=== PATIENT | male | born 1990 | race Caucasian/White ===

== ENCOUNTER 2021-07-06 17:05 | Inpatient (IN) | payer MEDICAID, OTHER ==
[~2021-07-06] VITALS: Ht 172.7 cm; Wt 70.3 kg
[2021-07-06] MEDS ORDERED: ONDANSETRON 4MG ODT PO PRN (17:15)
[2021-07-06 17:30] VITALS: BP 110/66
[2021-07-06] MEDS: OXYCODONE HCL 5MG TABLET PO PRN (17:30)
[2021-07-06] MEDS ORDERED: BISACODYL 10MG SUPP PR PRN (17:45)
[2021-07-06] MEDS ORDERED: BISACODYL 5MG TABLET PO PRN (17:45)
[2021-07-06] MEDS ORDERED: NA PHOS,M-B/NA PHOS,DI-BA ENEMA 118ML PR PRN (17:45)
[2021-07-06] MEDS ORDERED: ENOXAPARIN 30MG/0.3ML SYR SUBCUT SCH (18:00)
[2021-07-06] MEDS: ACETAMINOPHEN 325MG TABLET PO SCH (18:30)
[2021-07-06] MEDS ORDERED: DOCUSATE SODIUM 100MG CAPSULE PO PRN (18:45)
[2021-07-06] MEDS: HYDROCODONE/ACETAMINOPHEN 10/325MG TABLET PO PRN (19:25)
[2021-07-06 20:00] VITALS: BP 104/62
[2021-07-06] MEDS: KETOROLAC 60MG/2ML VIAL IM PRN (21:48)
[2021-07-07] LABS: HEMATOCRIT. 33.5 % (42.0-52.0); HEMOGLOBIN. 11.6 g/dL (14.0-18.0); MEAN CORPUSCULAR VOLUME 86.6 fL (80.0-94.0); MEAN PLATELET VOLUME 7.5 fl (7.4-10.4); PLATELET 421 x1000/uL (130-400); RED BLOOD CELL COUNT 3.87 mill/uL (4.7-6.1); RED CELL DISTRIBUTION WIDTH 14.3 % (11.6-14.6)
[2021-07-07 00:36] LABS: PLATELET ESTIMATE INCREASED
[2021-07-07] MEDS: ACETAMINOPHEN 325MG TABLET PO PRN ×4 (00:52→22:21)
[2021-07-07] MEDS: ACETAMINOPHEN 325MG TABLET PO SCH (02:30)
[2021-07-07] MEDS: OXYCODONE HCL 5MG TABLET PO PRN (05:43)
[2021-07-07 05:47] VITALS: BP 138/59
[2021-07-07] MEDS ORDERED: ENOXAPARIN 30MG/0.3ML SYR SUBCUT SCH (06:00)
[2021-07-07 08:00] VITALS: BP 113/59
[2021-07-07] MEDS: POLYETHYLENE GLYCOL 3350 (17GM) 1 DOSE PACK PO SCH ×2 (09:00→09:30)
[2021-07-07] MEDS ORDERED: DOCUSATE SODIUM SUGAR FREE 100MG/10ML UDC NG SCH (09:00)
[2021-07-07 09:25] LABS: BASOPHILS % 0.3 % (0.0-2.0); HEMATOCRIT. 35.1 % (42.0-52.0); LYMPHOCYTES % 7.3 % (20.0-50.0); MEAN CORPUSCULAR HEMOGLOBIN 30.3 pg (28.0-32.0); MEAN CORPUSCULAR VOLUME 88.7 fL (80.0-94.0); MEAN PLATELET VOLUME 7.5 fl (7.4-10.4); MONOCYTES % 6.2 % (2.0-8.0); NEUTROPHILS % 86.2 % (40.0-76.0); PLATELET 363 x1000/uL (130-400); RED BLOOD CELL COUNT 3.95 mill/uL (4.7-6.1)
[2021-07-07] MEDS: SENNOSIDES/DOCUSATE SOD 8.6/50MG TABLET PO SCH ×2 (09:29→17:21)
[2021-07-07 09:30] LABS: CHLORIDE 93 mEq/L (98-107)
[2021-07-07] MEDS ORDERED: DEXT 5%/0.45% NACL 1000ML 1,000 ML IV SCH (11:00)
[2021-07-07] MEDS: ENOXAPARIN 40MG/0.4ML SYR SUBCUT SCH (11:16)
[2021-07-07] MEDS: HYDROCODONE/ACETAMINOPHEN 10/325MG TABLET PO PRN ×2 (16:13→20:39)
[2021-07-07] MEDS ORDERED: NALOXONE HCL 0.4MG/ML VIAL IV PRN (16:30)
[2021-07-07] MEDS: CYCLOBENZAPRINE 10MG TABLET PO PRN (19:44)
[2021-07-07 20:00] VITALS: BP 115/78
[2021-07-08 05:00] VITALS: BP 104/77
[2021-07-08] MEDS: HYDROCODONE/ACETAMINOPHEN 10/325MG TABLET PO PRN ×3 (05:21→23:45)
[2021-07-08] MEDS: ACETAMINOPHEN 325MG TABLET PO PRN ×2 (05:44→16:10)
[2021-07-08 05:47] LABS: CLARITY URINE CLEAR (CLEAR); COLOR URINE YELLOW (YELLOW); KETONES URINE NEGATIVE (NEGATIVE); LEUKOCYTE ESTERASE URINE NEGATIVE (NEGATIVE); NITRITE URINE NEGATIVE (NEGATIVE); OCCULT BLOOD URINE NEGATIVE (NEGATIVE); PH URINE 7.5 (4.5-8.0); PROTEIN URINE NEGATIVE (NEGATIVE); SPECIFIC GRAVITY URINE 1.012 (1.005-1.030); UROBILINOGEN URINE 0.2 E.U./dL (0.2-1.0)
[2021-07-08 08:02] VITALS: BP 125/66
[2021-07-08] MEDS: SENNOSIDES/DOCUSATE SOD 8.6/50MG TABLET PO SCH ×2 (08:52→16:10)
[2021-07-08] MEDS: ENOXAPARIN 40MG/0.4ML SYR SUBCUT SCH (08:53)
[2021-07-08] MEDS: POLYETHYLENE GLYCOL 3350 (17GM) 1 DOSE PACK PO SCH (08:53)
[2021-07-08] MEDS: SULFAMETHOXAZOLE/TRIMETHOPRIM 800/160MG TABLET PO SCH ×2 (11:19→20:53)
[2021-07-08] MEDS ORDERED: LIDOCAINE HCL 1% 20ML VIAL (Pyxis) INJ ONE (11:45)
[2021-07-08] MEDS ORDERED: VANCOMYCIN 1250MG in DEXTROSE 5% WATER 250ML IV SCH (13:00)
[2021-07-08 15:50] VITALS: BP 113/68
[2021-07-08] MEDS ORDERED: DIPHENHYDRAMINE 50MG/ML VIAL IV NR (16:45)
[2021-07-08 20:00] VITALS: BP 130/55
[2021-07-09] MEDS ORDERED: VANCOMYCIN 1250MG in DEXTROSE 5% WATER 250ML IV SCH (02:00)
[2021-07-09] MEDS: KETOROLAC 60MG/2ML VIAL IM PRN (06:10)
[2021-07-09 08:00] VITALS: BP 105/70
[2021-07-09] MEDS: POLYETHYLENE GLYCOL 3350 (17GM) 1 DOSE PACK PO SCH (09:00)
[2021-07-09] MEDS: SENNOSIDES/DOCUSATE SOD 8.6/50MG TABLET PO SCH ×2 (09:30→17:21)
[2021-07-09] MEDS: ENOXAPARIN 40MG/0.4ML SYR SUBCUT SCH (09:30)
[2021-07-09] MEDS: SULFAMETHOXAZOLE/TRIMETHOPRIM 800/160MG TABLET PO SCH (09:30)
[2021-07-09] MEDS: HYDROCODONE/ACETAMINOPHEN 10/325MG TABLET PO PRN ×2 (10:40→18:02)
[2021-07-09] MEDS: VANCOMYCIN 1 G PREMIX 200 ML IV SCH ×2 (10:47→18:12)
[2021-07-09 20:30] VITALS: BP 108/54
[2021-07-10] MEDS: ACETAMINOPHEN 325MG TABLET PO PRN ×2 (00:39→09:28)
[2021-07-10 01:00] LABS: BASOPHILS % 0.3 % (0.0-2.0); EOSINOPHILS % 0.7 % (0.0-5.0); HEMATOCRIT. 24.8 % (42.0-52.0); HEMOGLOBIN. 8.8 g/dL (14.0-18.0); LYMPHOCYTES % 16.6 % (20.0-50.0); MEAN CORPUSCULAR HEMOGLOBIN 30.6 pg (28.0-32.0); MEAN CORPUSCULAR VOLUME 86.5 fL (80.0-94.0); MEAN PLATELET VOLUME 7.8 fl (7.4-10.4); MONOCYTES % 14.9 % (2.0-8.0); NEUTROPHILS % 67.5 % (40.0-76.0); PLATELET 288 x1000/uL (130-400); RED BLOOD CELL COUNT 2.87 mill/uL (4.7-6.1)
[2021-07-10 01:10] LABS: CHLORIDE 96 mEq/L (98-107)
[2021-07-10 01:18] LABS: VANCOMYCIN TROUGH 11.6 ug/mL (5.0-10.0)
[2021-07-10] MEDS: VANCOMYCIN 1 G PREMIX 200 ML IV SCH ×3 (02:59→11:07)
[2021-07-10] MEDS: OXYCODONE HCL 5MG TABLET PO PRN (06:19)
[2021-07-10 08:26] VITALS: BP 101/52
[2021-07-10] MEDS: POLYETHYLENE GLYCOL 3350 (17GM) 1 DOSE PACK PO SCH (09:00)
[2021-07-10] MEDS: SENNOSIDES/DOCUSATE SOD 8.6/50MG TABLET PO SCH ×2 (09:10→18:50)
[2021-07-10] MEDS: ENOXAPARIN 40MG/0.4ML SYR SUBCUT SCH (09:10)
[2021-07-10] MEDS: NAFCILLIN SODIUM 1,000 MG in SODIUM CHLORIDE 0.9% 50 ML IV SCH ×2 (13:43→18:47)
[2021-07-10] MEDS ORDERED: VANCOMYCIN 1250MG in DEXTROSE 5% WATER 250ML IV SCH (14:00)
[2021-07-10] MEDS: MIDODRINE HCL 5MG TABLET PO SCH (18:50)
[2021-07-10 20:00] VITALS: BP 108/65
[2021-07-11] MEDS: ACETAMINOPHEN 325MG TABLET PO PRN (01:11)
[2021-07-11] MEDS: NAFCILLIN SODIUM 1,000 MG in SODIUM CHLORIDE 0.9% 50 ML IV SCH ×4 (01:11→18:14)
[2021-07-11 08:25] VITALS: BP 107/64
[2021-07-11] MEDS: POLYETHYLENE GLYCOL 3350 (17GM) 1 DOSE PACK PO SCH ×2 (09:00→10:34)
[2021-07-11] MEDS: SENNOSIDES/DOCUSATE SOD 8.6/50MG TABLET PO SCH ×2 (10:34→17:00)
[2021-07-11] MEDS: MIDODRINE HCL 5MG TABLET PO SCH ×3 (10:34→18:10)
[2021-07-11] MEDS: HYDROCODONE/ACETAMINOPHEN 10/325MG TABLET PO PRN (10:38)
[2021-07-11] MEDS: ENOXAPARIN 40MG/0.4ML SYR SUBCUT SCH (18:14)
[2021-07-12] MEDS: NAFCILLIN SODIUM 1,000 MG in SODIUM CHLORIDE 0.9% 50 ML IV SCH ×5 (00:59→23:34)
[2021-07-12] MEDS: ACETAMINOPHEN 325MG TABLET PO PRN ×2 (03:03→10:10)
[2021-07-12 08:00] VITALS: BP 105/64
[2021-07-12] MEDS: POLYETHYLENE GLYCOL 3350 (17GM) 1 DOSE PACK PO SCH (09:00)
[2021-07-12] MEDS: SENNOSIDES/DOCUSATE SOD 8.6/50MG TABLET PO SCH ×2 (09:00→18:16)
[2021-07-12] MEDS: ENOXAPARIN 40MG/0.4ML SYR SUBCUT SCH (10:09)
[2021-07-12] MEDS: MIDODRINE HCL 5MG TABLET PO SCH ×3 (10:11→18:10)
[2021-07-12] MEDS: OXYCODONE HCL 5MG TABLET PO PRN ×2 (13:16→23:33)
[2021-07-12 20:00] VITALS: BP 109/88
[2021-07-13] MEDS: NAFCILLIN SODIUM 1,000 MG in SODIUM CHLORIDE 0.9% 50 ML IV SCH ×4 (06:09→23:23)
[2021-07-13 08:00] VITALS: BP 101/65
[2021-07-13] MEDS: POLYETHYLENE GLYCOL 3350 (17GM) 1 DOSE PACK PO SCH ×2 (09:00→09:35)
[2021-07-13] MEDS: MIDODRINE HCL 5MG TABLET PO SCH ×3 (09:35→17:06)
[2021-07-13] MEDS: ENOXAPARIN 40MG/0.4ML SYR SUBCUT SCH (09:36)
[2021-07-13] MEDS: SENNOSIDES/DOCUSATE SOD 8.6/50MG TABLET PO SCH ×2 (09:37→17:07)
[2021-07-13] MEDS: OXYCODONE HCL 5MG TABLET PO PRN ×2 (09:37→20:30)
[2021-07-13] MEDS: ACETAMINOPHEN 325MG TABLET PO PRN (12:42)
[2021-07-13 20:00] VITALS: BP 101/51
[2021-07-13] MEDS: HYDROXYZINE 25MG TABLET PO SCH (20:29)
[2021-07-14] MEDS: NAFCILLIN SODIUM 1,000 MG in SODIUM CHLORIDE 0.9% 50 ML IV SCH ×4 (05:38→23:46)
[2021-07-14 08:00] VITALS: BP 104/68
[2021-07-14] MEDS: MIDODRINE HCL 5MG TABLET PO SCH ×3 (08:27→17:46)
[2021-07-14] MEDS: POLYETHYLENE GLYCOL 3350 (17GM) 1 DOSE PACK PO SCH (08:28)
[2021-07-14] MEDS: OXYCODONE HCL 5MG TABLET PO PRN ×2 (08:28→15:02)
[2021-07-14] MEDS: SENNOSIDES/DOCUSATE SOD 8.6/50MG TABLET PO SCH ×2 (08:28→17:47)
[2021-07-14] MEDS: ENOXAPARIN 40MG/0.4ML SYR SUBCUT SCH (09:00)
[2021-07-14 13:00] VITALS: BP 97/55
[2021-07-14 20:00] VITALS: BP 96/58
[2021-07-14] MEDS: HYDROXYZINE 25MG TABLET PO SCH (20:18)
[2021-07-15] MEDS: NAFCILLIN SODIUM 1,000 MG in SODIUM CHLORIDE 0.9% 50 ML IV SCH ×2 (05:28→12:52)
[2021-07-15] MEDS: OXYCODONE HCL 5MG TABLET PO PRN ×2 (05:41→12:52)
[2021-07-15 08:00] VITALS: BP 97/54
[2021-07-15] MEDS: POLYETHYLENE GLYCOL 3350 (17GM) 1 DOSE PACK PO SCH (09:00)
[2021-07-15] MEDS: MIDODRINE HCL 5MG TABLET PO SCH ×3 (09:08→16:49)
[2021-07-15] MEDS: SENNOSIDES/DOCUSATE SOD 8.6/50MG TABLET PO SCH ×2 (09:09→16:49)
[2021-07-15] MEDS: ENOXAPARIN 40MG/0.4ML SYR SUBCUT SCH (09:10)
[2021-07-15 16:30] VITALS: BP 106/87
[2021-07-15 21:00] VITALS: BP 114/70
[2021-07-15] MEDS: HYDROXYZINE 25MG TABLET PO SCH (21:33)
[2021-07-16] MEDS: ACETAMINOPHEN 325MG TABLET PO PRN ×3 (00:29→20:48)
[2021-07-16 06:09] VITALS: BP 97/60
[2021-07-16] MEDS: MIDODRINE HCL 5MG TABLET PO SCH ×3 (08:07→16:14)
[2021-07-16] MEDS: OXYCODONE HCL 5MG TABLET PO PRN ×2 (08:07→16:14)
[2021-07-16] MEDS: ENOXAPARIN 40MG/0.4ML SYR SUBCUT SCH (08:08)
[2021-07-16] MEDS: POLYETHYLENE GLYCOL 3350 (17GM) 1 DOSE PACK PO SCH (08:12)
[2021-07-16] MEDS: SENNOSIDES/DOCUSATE SOD 8.6/50MG TABLET PO SCH ×2 (08:12→16:14)
[2021-07-16] MEDS: SULFAMETHOXAZOLE/TRIMETHOPRIM 400/80MG TAB PO SCH ×2 (12:44→20:48)
[2021-07-16 16:15] VITALS: BP 110/64
[2021-07-16 20:00] VITALS: BP 110/64
[2021-07-16] MEDS: HYDROXYZINE 25MG TABLET PO SCH (20:47)
[2021-07-17 08:00] VITALS: BP 110/70
[2021-07-17 08:00] LABS: HEMATOCRIT 31.1 % (42.0-52.0); HEMOGLOBIN 10.6 g/dL (14.0-18.0); MEAN CORPUSCULAR HEMOGLOBIN 29.5 pg (28.0-32.0); MEAN CORPUSCULAR VOLUME 86.6 fL (80.0-94.0); PLATELET 936 x1000/uL (130-400); RED BLOOD CELL COUNT 3.59 mill/uL (4.7-6.1); RED CELL DISTRIBUTION WIDTH 15.2 % (11.6-14.6)
[2021-07-17 08:02] LABS: CHLORIDE 102 mEq/L (98-107)
[2021-07-17] MEDS: SULFAMETHOXAZOLE/TRIMETHOPRIM 400/80MG TAB PO SCH ×2 (08:35→21:06)
[2021-07-17] MEDS: MIDODRINE HCL 5MG TABLET PO SCH ×3 (08:35→16:33)
[2021-07-17] MEDS: ENOXAPARIN 40MG/0.4ML SYR SUBCUT SCH (08:36)
[2021-07-17] MEDS: OXYCODONE HCL 5MG TABLET PO PRN (08:36)
[2021-07-17] MEDS: POLYETHYLENE GLYCOL 3350 (17GM) 1 DOSE PACK PO SCH (08:38)
[2021-07-17] MEDS: SENNOSIDES/DOCUSATE SOD 8.6/50MG TABLET PO SCH ×2 (08:39→16:32)
[2021-07-17] MEDS: ACETAMINOPHEN 325MG TABLET PO PRN (13:19)
[2021-07-17 16:31] VITALS: BP 102/63
[2021-07-17 20:00] VITALS: BP 98/53
[2021-07-17] MEDS: HYDROXYZINE 25MG TABLET PO SCH (21:06)
[2021-07-18] VITALS: BP 109/62
[2021-07-18 08:00] VITALS: BP 100/62
[2021-07-18] MEDS: POLYETHYLENE GLYCOL 3350 (17GM) 1 DOSE PACK PO SCH (11:14)
[2021-07-18] MEDS: SENNOSIDES/DOCUSATE SOD 8.6/50MG TABLET PO SCH ×2 (11:19→17:47)
[2021-07-18] MEDS: MIDODRINE HCL 5MG TABLET PO SCH ×3 (11:19→17:47)
[2021-07-18] MEDS: SULFAMETHOXAZOLE/TRIMETHOPRIM 400/80MG TAB PO SCH ×2 (11:20→22:32)
[2021-07-18] MEDS: ENOXAPARIN 40MG/0.4ML SYR SUBCUT SCH (11:20)
[2021-07-18] MEDS: CYCLOBENZAPRINE 10MG TABLET PO PRN (11:21)
[2021-07-18] MEDS: TRAMADOL 50MG TABLET PO PRN (16:08)
[2021-07-18 20:00] VITALS: BP 112/61
[2021-07-18] MEDS: HYDROXYZINE 25MG TABLET PO SCH (23:09)
[2021-07-19] MEDS: TRAMADOL 50MG TABLET PO PRN ×2 (06:49→12:43)
[2021-07-19 08:00] VITALS: BP 93/40
[2021-07-19] MEDS: POLYETHYLENE GLYCOL 3350 (17GM) 1 DOSE PACK PO SCH (08:04)
[2021-07-19] MEDS: MIDODRINE HCL 5MG TABLET PO SCH ×3 (08:06→16:13)
[2021-07-19] MEDS: SENNOSIDES/DOCUSATE SOD 8.6/50MG TABLET PO SCH ×2 (08:07→16:13)
[2021-07-19] MEDS: ENOXAPARIN 40MG/0.4ML SYR SUBCUT SCH (08:07)
[2021-07-19] MEDS: SULFAMETHOXAZOLE/TRIMETHOPRIM 400/80MG TAB PO SCH ×2 (08:07→21:00)
[2021-07-19] MEDS: CYCLOBENZAPRINE 10MG TABLET PO PRN ×2 (08:08→16:13)
[2021-07-19 10:00] VITALS: BP 105/69
[2021-07-19 20:00] VITALS: BP 102/60
[2021-07-20] MEDS: TRAMADOL 50MG TABLET PO PRN ×2 (05:43→12:41)
[2021-07-20 08:00] VITALS: BP 95/56
[2021-07-20] MEDS: POLYETHYLENE GLYCOL 3350 (17GM) 1 DOSE PACK PO SCH ×2 (08:29→08:32)
[2021-07-20] MEDS: SULFAMETHOXAZOLE/TRIMETHOPRIM 400/80MG TAB PO SCH ×2 (08:30→20:03)
[2021-07-20] MEDS: SENNOSIDES/DOCUSATE SOD 8.6/50MG TABLET PO SCH ×3 (08:30→17:00)
[2021-07-20] MEDS: MIDODRINE HCL 5MG TABLET PO SCH ×3 (08:30→17:42)
[2021-07-20] MEDS: ENOXAPARIN 40MG/0.4ML SYR SUBCUT SCH (08:31)
[2021-07-20] MEDS: ACETAMINOPHEN 325MG TABLET PO PRN (12:46)
[2021-07-20 20:00] VITALS: BP 99/60
[2021-07-21 08:00] VITALS: BP 102/69
[2021-07-21] MEDS: MIDODRINE HCL 5MG TABLET PO SCH ×3 (08:40→17:46)
[2021-07-21] MEDS: SENNOSIDES/DOCUSATE SOD 8.6/50MG TABLET PO SCH ×2 (08:40→17:46)
[2021-07-21] MEDS: SULFAMETHOXAZOLE/TRIMETHOPRIM 400/80MG TAB PO SCH ×2 (08:41→20:02)
[2021-07-21] MEDS: ACETAMINOPHEN 325MG TABLET PO PRN (08:41)
[2021-07-21] MEDS: ENOXAPARIN 40MG/0.4ML SYR SUBCUT SCH (08:42)
[2021-07-21] MEDS: POLYETHYLENE GLYCOL 3350 (17GM) 1 DOSE PACK PO SCH (08:43)
[2021-07-21] MEDS: TRAMADOL 50MG TABLET PO PRN (18:08)
[2021-07-21 20:00] VITALS: BP 102/68
[2021-07-22] MEDS: TRAMADOL 50MG TABLET PO PRN (06:07)
[2021-07-22 08:00] VITALS: BP 96/47
[2021-07-22] MEDS: MIDODRINE HCL 5MG TABLET PO SCH ×3 (08:47→16:43)
[2021-07-22] MEDS: SENNOSIDES/DOCUSATE SOD 8.6/50MG TABLET PO SCH ×2 (08:48→16:53)
[2021-07-22] MEDS: ENOXAPARIN 40MG/0.4ML SYR SUBCUT SCH (08:48)
[2021-07-22] MEDS: POLYETHYLENE GLYCOL 3350 (17GM) 1 DOSE PACK PO SCH ×2 (08:49→13:49)
[2021-07-22 20:00] VITALS: BP 104/50
[2021-07-23] MEDS: ACETAMINOPHEN 325MG TABLET PO PRN ×2 (07:48→22:02)
[2021-07-23] MEDS: TRAMADOL 50MG TABLET PO PRN (07:50)
[2021-07-23 07:55] VITALS: BP 100/62
[2021-07-23] MEDS: MIDODRINE HCL 5MG TABLET PO SCH ×3 (08:07→16:37)
[2021-07-23] MEDS: POLYETHYLENE GLYCOL 3350 (17GM) 1 DOSE PACK PO SCH (08:08)
[2021-07-23] MEDS: ENOXAPARIN 40MG/0.4ML SYR SUBCUT SCH (08:08)
[2021-07-23] MEDS: SENNOSIDES/DOCUSATE SOD 8.6/50MG TABLET PO SCH ×2 (08:09→16:37)
[2021-07-23 08:45] VITALS: BP 100/62
[2021-07-23 20:00] VITALS: BP 109/62
[2021-07-24 08:00] VITALS: BP 107/61
[2021-07-24] MEDS: POLYETHYLENE GLYCOL 3350 (17GM) 1 DOSE PACK PO SCH (09:00)
[2021-07-24] MEDS: SENNOSIDES/DOCUSATE SOD 8.6/50MG TABLET PO SCH (09:00)
[2021-07-24] MEDS: MIDODRINE HCL 5MG TABLET PO SCH ×2 (09:03→13:28)
[2021-07-24] MEDS: ENOXAPARIN 40MG/0.4ML SYR SUBCUT SCH (09:03)
[2021-07-24] MEDS: ACETAMINOPHEN 325MG TABLET PO PRN (09:03)
[2021-07-24 12:26] VITALS: BP 107/61
[2021-07-24] MEDS ORDERED: MIDO10TA MT (14:23)
== END 2021-07-24 14:15 | disposition home health service (06) | DRG 341 ==
PROVIDERS: ADMIT Psychiatry & Neurology Neurology; ATTEND Hospitalist
PROC: 02HV33Z Insertion of Infusion Device into Superior Vena Cava, Percutaneous Approach (ICD-10-PCS; principal; 2021-07-08)
PROC: B548ZZA Ultrasonography of Superior Vena Cava, Guidance (ICD-10-PCS; 2021-07-08)
DX: S32.591A Other specified fracture of right pubis, initial encounter for closed fracture (principal); A41.01 Sepsis due to Methicillin susceptible Staphylococcus aureus; S32.059A Unspecified fracture of fifth lumbar vertebra, initial encounter for closed fracture; E87.1 Hypo-osmolality and hyponatremia; I95.9 Hypotension, unspecified; S71.101A Unspecified open wound, right thigh, initial encounter; Y90.9 Presence of alcohol in blood, level not specified; B95.61 Methicillin susceptible Staphylococcus aureus infection as the cause of diseases classified elsewhere; D64.9 Anemia, unspecified; R58 Hemorrhage, not elsewhere classified; F10.129 Alcohol abuse with intoxication, unspecified; Y93.89 Activity, other specified; Y92.89 Other specified places as the place of occurrence of the external cause; Y99.8 Other external cause status; V03.10XA Pedestrian on foot injured in collision with car, pick-up truck or van in traffic accident, initial encounter
CPT/HCPCS: 36415; 71045; 76937; 80048; 80202; 81003; 85025; 85027; 87070; 87077; 87186; 87426; 93970; 97110; 97116; 97140; 97162; 97166; 97530; 97535; C1725; C1893; J1200; J1650; J1885; J3370; J3490; J7040; J7060